=== PATIENT | male | born 1940 | race Caucasian/White ===

== ENCOUNTER 2022-04-30 06:02 | Emergency (ER) | payer MEDICARE, OTHER ==
[2022-04-30] MEDS ORDERED: Aspirin 81 MG Tab.Chew PO ONE (06:07)
[2022-04-30] MEDS ORDERED: Morphine 2 MG/ML SYRINGE IVPUSH ONE ×2 (06:14→06:48)
[2022-04-30 06:46] LABS: ANION GAP 11.3 mEq/L (7-13); CHLORIDE,CL 108 mmol/L (98-107); SODIUM,NA 144 mmol/L (136-145)
[2022-04-30 06:50] LABS: ESTIMATED GFR 52 mL/min (>=60)
[2022-04-30] MEDS ORDERED: Losartan 50 MG Tab PO ONE (09:02)
[2022-04-30] MEDS ORDERED: Hydrochlorothiazide 25 MG Tab PO ONE (09:02)
[2022-04-30] MEDS ORDERED: Atenolol 50 MG Tab PO ONE (09:02)
[2022-04-30 09:25] VITALS: BP 164/96; PULSE 64
[2022-04-30] MEDS ORDERED: methylPREDNISolone Sodium Succinate 125 MG/2 ML SDV IVPUSH ONE (11:17)
== END 2022-04-30 11:39 | disposition home or self-care (01) ==
LOC: DL.ED 06:02
DX: R09.1 Pleurisy (principal); C79.51 Secondary malignant neoplasm of bone; I10 Essential (primary) hypertension; Z79.899 Other long term (current) drug therapy; Z20.822 Contact with and (suspected) exposure to COVID-19
CPT/HCPCS: 36415; 71045; 80053; 82150; 83690; 83735; 83880; 84484; 85025; 85379; 85610; 86140; 93005; 96374; 96375; 96376; 99285; A9270; J2270; J2930; U0002

== ENCOUNTER 2022-12-01 18:51 | Emergency (ER) | payer MEDICARE, OTHER ==
[2022-12-01 19:06] VITALS: BP 121/82; PULSE 83
[2022-12-01] MEDS ORDERED: Sodium Chloride 0.9% 10 ML Syringe FLUSH PRN (19:08)
[2022-12-01] MEDS ORDERED: Acetaminophen/oxyCODONE 325-5 MG Tab PO ONE (19:15)
[2022-12-01] MEDS ORDERED: cefTRIAXone 1 GM Vial IVPUSH ONE (19:16)
[2022-12-01 19:36] LABS: BASOPHILS PERCENT AUTO 0.2 % (0.0-1.0); EOSINOPHILS PERCENT AUTO 1.1 % (1.0-3.0); HEMATOCRIT 40.2 % (40.0-54.0); HEMOGLOBIN 13.7 g/dL (14.0-18.0); LYMPHOCYTES PERCENT AUTO 13.1 % (20.5-50.1); MEAN CORPUSCULAR HEMOGLOBIN 32.6 pg (27.0-34.0); MEAN CORPUSCULAR HGB CONC 34.1 g/dL (33.0-35.0); MEAN CORPUSCULAR VOLUME 95.7 fL (80-100); MONOCYTES PERCENT AUTO 10.5 % (2-8); NEUTROPHILS PERCENT AUTO 75.1 % (42.2-75.2); PLATELET COUNT,PLT 155 10^3/uL (150-450); WHITE BLOOD CELL COUNT,WBC 9.3 10^3/uL (5.0-10.0)
[2022-12-01 19:49] LABS: ANION GAP 9.5 mEq/L (7-13); CALCIUM 8.7 mg/dL (8.5-10.1); CREATININE 1.45 mg/dL (0.70-1.30); EST CRCL DRUG DOSING (CG) 44.09 mL/min; POTASSIUM,K 3.5 mmol/L (3.5-5.1)
== END 2022-12-01 21:18 | disposition home or self-care (01) ==
LOC: DL.ED 18:51
DX: L03.115 Cellulitis of right lower limb (principal); I10 Essential (primary) hypertension; E03.9 Hypothyroidism, unspecified; Z79.899 Other long term (current) drug therapy
CPT/HCPCS: 36415; 80048; 85025; 87040; 93971; 96374; 99284; A9270; J0696; J3490

== ENCOUNTER 2022-12-07 11:26 | Inpatient (IN) | payer MEDICARE ==
[2022-12-07] MEDS ORDERED: Docusate Sodium 100 MG Cap PO PRN (12:08)
[2022-12-07] MEDS ORDERED: Ondansetron 4 MG Tab.DIS PO PRN (12:08)
[2022-12-07] MEDS ORDERED: Acetaminophen 325 MG Tab PO PRN (12:08)
[2022-12-07] MEDS ORDERED: Acetaminophen/HYDROcodone 325-5 MG Tab PO PRN (12:08)
[2022-12-07 13:13] LABS: LACTIC ACID 2.1 mmol/L (0.4-2.0)
[2022-12-07] MEDS: Sodium Chloride 0.9% 1,000 ML IV SCH (13:19)
[2022-12-07] MEDS: Calcium Carbonate/Vitamin D3 1250 MG-5 MCG Tab PO SCH ×2 (16:59→20:16)
[2022-12-07] MEDS: Sulfamethoxazole/Trimethoprim 800-160 MG Tab PO SCH (20:20)
[2022-12-08] MEDS: Sodium Chloride 0.9% 1,000 ML IV SCH (04:41)
[2022-12-08] MEDS: Levothyroxine 50 MCG Tab PO SCH (05:49)
[2022-12-08 06:34] LABS: BASOPHILS PERCENT AUTO 0.5 % (0.0-1.0); EOSINOPHILS PERCENT AUTO 2.8 % (1.0-3.0); HEMATOCRIT 37.7 % (40.0-54.0); HEMOGLOBIN 12.5 g/dL (14.0-18.0); LYMPHOCYTES PERCENT AUTO 24.3 % (20.5-50.1); MEAN CORPUSCULAR HEMOGLOBIN 32.6 pg (27.0-34.0); MEAN CORPUSCULAR HGB CONC 33.2 g/dL (33.0-35.0); MEAN CORPUSCULAR VOLUME 98.4 fL (80-100); MONOCYTES PERCENT AUTO 11.2 % (2-8); NEUTROPHILS PERCENT AUTO 61.2 % (42.2-75.2); PLATELET COUNT,PLT 211 10^3/uL (150-450); RED BLOOD CELL COUNT 3.83 10^6/uL (4.6-6.2); WHITE BLOOD CELL COUNT,WBC 6.2 10^3/uL (5.0-10.0)
[2022-12-08 07:01] LABS: ANION GAP 8.2 mEq/L (7-13); CALCIUM 8.8 mg/dL (8.5-10.1); CREATININE 1.43 mg/dL (0.70-1.30); EST CRCL DRUG DOSING (CG) 45.96 mL/min; POTASSIUM,K 4.2 mmol/L (3.5-5.1)
[2022-12-08] MEDS: Losartan 25 MG Tab PO SCH (08:46)
[2022-12-08] MEDS: Hydrochlorothiazide 25 MG Tab PO SCH (08:48)
[2022-12-08] MEDS: Atenolol 50 MG Tab PO SCH (08:49)
[2022-12-08] MEDS: Venlafaxine 150 MG Cap.ER PO SCH (08:49)
[2022-12-08] MEDS: Calcium Carbonate/Vitamin D3 1250 MG-5 MCG Tab PO SCH ×2 (08:49→20:10)
[2022-12-08] MEDS: Sulfamethoxazole/Trimethoprim 800-160 MG Tab PO SCH ×2 (08:49→20:10)
[2022-12-08] MEDS: Multivitamin Tab PO SCH (08:49)
[2022-12-08] MEDS: Enoxaparin 40 MG/0.4 ML Syringe SUBCUT SCH (08:50)
[2022-12-08] MEDS: ENZALUTAMIDE 40 MG PO SCH (09:40)
[2022-12-08] MEDS ORDERED: Sodium Chloride 0.9% 10 ML Syringe FLUSH PRN (20:07)
[2022-12-09] MEDS: Levothyroxine 50 MCG Tab PO SCH ×2 (04:38→05:23)
[2022-12-09] MEDS: Sulfamethoxazole/Trimethoprim 800-160 MG Tab PO SCH (08:32)
[2022-12-09] MEDS: Hydrochlorothiazide 25 MG Tab PO SCH (08:32)
[2022-12-09] MEDS: Losartan 25 MG Tab PO SCH (08:33)
[2022-12-09] MEDS: Atenolol 50 MG Tab PO SCH (08:33)
[2022-12-09] MEDS: Venlafaxine 150 MG Cap.ER PO SCH (08:34)
[2022-12-09] MEDS: Calcium Carbonate/Vitamin D3 1250 MG-5 MCG Tab PO SCH (08:34)
[2022-12-09] MEDS: Enoxaparin 40 MG/0.4 ML Syringe SUBCUT SCH (08:34)
[2022-12-09] MEDS: Multivitamin Tab PO SCH (08:34)
[2022-12-09] MEDS: ENZALUTAMIDE 40 MG PO SCH (08:38)
[2022-12-09 11:57] VITALS: BP 128/71; PULSE 71
[2022-12-09] MEDS ORDERED: VANCOmycin 1.5 GM/300 ML 1.5 GM in Premix Bag 1 BAG IV SCH (13:00)
== END 2022-12-09 14:00 | disposition home or self-care (01) | DRG 872 ==
LOC: DL.MS 11:26 → UNDOADMIN 11:26 → DL.MS 12:08
PROVIDERS: ADMIT Internal Medicine; ATTEND Internal Medicine
DX: A41.02 Sepsis due to Methicillin resistant Staphylococcus aureus (principal); L03.115 Cellulitis of right lower limb; E03.9 Hypothyroidism, unspecified; I10 Essential (primary) hypertension; C61 Malignant neoplasm of prostate; Z79.899 Other long term (current) drug therapy
CPT/HCPCS: 36415; 80048; 80202; 83605; 85025; A9270-GY; J1650; J3370; J7030; J7050

== ENCOUNTER 2023-12-13 18:39 | Emergency (ER) | payer OTHER ==
[2023-12-13] MEDS: Sodium Chloride 0.9% 1,000 ML IV ONE ×3 (18:45→21:16)
[2023-12-13 18:59] LABS: BASOPHILS PERCENT AUTO 0.1 % (0.0-1.0); EOSINOPHILS PERCENT AUTO 0.1 % (1.0-3.0); HEMATOCRIT 48.9 % (40.0-54.0); HEMOGLOBIN 16.6 g/dL (14.0-18.0); LYMPHOCYTES PERCENT AUTO 6.9 % (20.5-50.1); MEAN CORPUSCULAR HEMOGLOBIN 31.8 pg (27.0-34.0); MEAN CORPUSCULAR HGB CONC 33.9 g/dL (33.0-35.0); MEAN CORPUSCULAR VOLUME 93.7 fL (80-100); MONOCYTES PERCENT AUTO 5.7 % (2-8); NEUTROPHILS PERCENT AUTO 87.2 % (42.2-75.2); PLATELET COUNT,PLT 165 10^3/uL (150-450); RED BLOOD CELL COUNT 5.22 10^6/uL (4.6-6.2); WHITE BLOOD CELL COUNT,WBC 11.2 10^3/uL (5.0-10.0)
[2023-12-13] MEDS: Acetaminophen 500 MG Tab PO ONE (19:15)
[2023-12-13 19:16] LABS: INR 0.9 (0.9-1.2); PROTHROMBIN TIME 9.7 SEC (9.0-12.0); PTT,PARTIAL THROMBOPLSTIN TIME 22.8 SEC (22.0-34.0)
[2023-12-13 19:21] LABS: ALBUMIN 3.5 g/dL (3.4-5.0); ANION GAP 15.9 mEq/L (7-13); BILIRUBIN TOTAL 0.7 mg/dL (0.2-1.0); BUN/CREATININE RATIO 16.9 (No establ ref range); C-REACTIVE PROTEIN 1.88 ng/dL (<=0.50); CALCIUM 8.9 mg/dL (8.5-10.1); CREATININE 1.66 mg/dL (0.70-1.30); EST CRCL DRUG DOSING (CG) 37.83 mL/min; MAGNESIUM 1.6 mg/dL (1.8-2.4); POTASSIUM,K 3.9 mmol/L (3.5-5.1); PROTEIN TOTAL,TP 6.9 g/dL (6.4-8.2)
[2023-12-13] MEDS: Vancomycin 2 GM in Sodium Chloride 0.9% 500 ML IV ONE (20:14)
[2023-12-13] MEDS: Sodium Chloride 0.9% 10 ML Syringe FLUSH PRN (20:14)
[2023-12-13 20:29] VITALS: BP 100/55; PULSE 92
[2023-12-13] MEDS: Magnesium Sulfate/Water 2 GM in Premix Bag 1 BAG IV ONE (20:35)
[2023-12-13] MEDS: Ketorolac 30 MG/ML SDV IVPUSH ONE (20:36)
== END 2023-12-13 21:16 ==
LOC: DL.ED 18:39
DX: A41.89 Other specified sepsis (principal); U07.1 COVID-19; I44.1 Atrioventricular block, second degree; I10 Essential (primary) hypertension; E03.9 Hypothyroidism, unspecified; Z79.899 Other long term (current) drug therapy; Z79.890 Hormone replacement therapy; Z79.2 Long term (current) use of antibiotics
CPT/HCPCS: 36415; 70450; 71045; 80053; 82140; 82150; 82550; 82947; 83605; 83690; 83735; 83880; 84145; 84484; 85025; 85610; 85730; 86140; 87040; 87635; 87804; 93005; 96361; 96365; 96368; 96375; 99285; A9270; J1885; J3370; J3475; J7030; J7040; 87077; 87186; J3490; U0002

== ENCOUNTER 2024-08-28 14:13 | Inpatient (IN) | payer OTHER ==
[2024-08-28] MEDS ORDERED: Sodium Chloride 0.9% 10 ML Syringe FLUSH PRN ×2 (14:42)
[2024-08-28 15:14] LABS: BASOPHILS PERCENT AUTO 0.5 % (0.0-1.0); EOSINOPHILS PERCENT AUTO 5.3 % (1.0-3.0); HEMATOCRIT 38.8 % (40.0-54.0); HEMOGLOBIN 12.7 g/dL (14.0-18.0); LYMPHOCYTES PERCENT AUTO 18.3 % (20.5-50.1); MEAN CORPUSCULAR HEMOGLOBIN 30.8 pg (27.0-34.0); MEAN CORPUSCULAR HGB CONC 32.7 g/dL (33.0-35.0); MEAN CORPUSCULAR VOLUME 94.2 fL (80-100); NEUTROPHILS PERCENT AUTO 64.9 % (42.2-75.2); PLATELET COUNT,PLT 167 10^3/uL (150-450); RED BLOOD CELL COUNT 4.12 10^6/uL (4.6-6.2); WHITE BLOOD CELL COUNT,WBC 5.6 10^3/uL (5.0-10.0)
[2024-08-28 15:36] LABS: ANION GAP 8.6 mEq/L (7-13); BILIRUBIN TOTAL 0.7 mg/dL (0.2-1.0); BUN/CREATININE RATIO 16.2 (No establ ref range); CALCIUM 8.8 mg/dL (8.5-10.1); CREATININE 1.42 mg/dL (0.70-1.30); EST CRCL DRUG DOSING (CG) 43.42 mL/min; POTASSIUM,K 3.6 mmol/L (3.5-5.1); PROTEIN TOTAL,TP 5.8 g/dL (6.4-8.2)
[2024-08-28 15:43] LABS: A/G RATIO 1.07
[2024-08-28 15:44] LABS: PROTHROMBIN TIME 10.5 SEC (9.0-12.0)
[2024-08-28 15:46] LABS: D-DIMER QUANTITATIVE > 5000 ng/mL (0-400)
[2024-08-28] MEDS: Iopamidol 612 MG/ML 100 ML Bottle IVPUSH ONE (15:52)
[2024-08-28] MEDS: Iopamidol 755 Mg/ML 100 ML Bottle IVPUSH ONE (16:27)
[2024-08-28] MEDS: Heparin Sodium 5,000 Units/ML Vial IVPUSH ONE (17:23)
[2024-08-28] MEDS: Heparin Sodium/0.45% NaCl 25,000 UNITS/500 ML BAG IV SCH (17:25)
[2024-08-28] MEDS ORDERED: Ondansetron 4 MG/2 ML SDV IVPUSH PRN (18:19)
[2024-08-28] MEDS ORDERED: Polyethylene Glycol 3350 Powder 17 GM Packet PO PRN (18:19)
[2024-08-28] MEDS ORDERED: Sennosides/Docusate Sodium 50-8.6 MG Tab PO PRN (18:19)
[2024-08-28] MEDS ORDERED: Magnesium Hydroxide 400 MG/5 ML Susp 30 ML Cup PO PRN (18:19)
[2024-08-28] MEDS ORDERED: Melatonin 3 MG Tab PO PRN (18:19)
[2024-08-28] MEDS ORDERED: Acetaminophen/HYDROcodone 325-5 MG Tab PO PRN (18:19)
[2024-08-28] MEDS ORDERED: Acetaminophen 325 MG Tab PO PRN (18:19)
[2024-08-28] MEDS ORDERED: Naloxone 2 MG/2 ML Syringe IVPUSH PRN (18:19)
[2024-08-28] MEDS ORDERED: HYDROmorphone 0.5 MG/0.5 ML Syringe IVPUSH PRN (18:19)
[2024-08-28] MEDS ORDERED: Benzonatate 100 MG Cap PO PRN (19:19)
[2024-08-28] MEDS ORDERED: 50% Dextrose in Water 50 ML Syringe IVPUSH PRN (19:30)
[2024-08-28] MEDS ORDERED: Glucagon,Human Recombinant 1 MG Vial IM PRN (19:30)
[2024-08-28 19:55] LABS: T4 FREE 1.3 ng/dL (0.76-1.46); TSH ULTRASENSITIVE 2.17 uIU/mL (0.36-3.74)
[2024-08-28] MEDS: Dexamethasone 4 MG/ML SDV IVPUSH ONE (20:01)
[2024-08-28] MEDS: Benzonatate 100 MG Cap PO ONE (20:01)
[2024-08-28] MEDS: Multivitamin Tab PO SCH (22:01)
[2024-08-28] MEDS: Saccharomyces Boulardii (Probiotic) 250 MG Cap PO SCH (22:02)
[2024-08-28] MEDS: guaiFENesin 600 MG Tab.ER PO SCH (22:02)
[2024-08-28] MEDS: Codeine/guaiFENesin 10-100 MG/5 ML Syrup 5 ML Cup PO PRN (22:02)
[2024-08-28] MEDS: Amoxicillin/Clavulanate K 875-125 MG Tab PO SCH (22:02)
[2024-08-28] MEDS: Metoprolol Tartrate 5 MG/5 ML SDV IVPUSH PRN (22:09)
[2024-08-28] MEDS: Sodium Chloride 0.9% 1,000 ML IV SCH (22:10)
[2024-08-29] MEDS: Levothyroxine 100 MCG Tab PO SCH (05:44)
[2024-08-29] MEDS: Levothyroxine 75 MCG Tab PO SCH (05:44)
[2024-08-29 06:23] LABS: BASOPHILS PERCENT AUTO 0.2 % (0.0-1.0); HEMATOCRIT 41.1 % (40.0-54.0); HEMOGLOBIN 13.1 g/dL (14.0-18.0); LYMPHOCYTES PERCENT AUTO 17.8 % (20.5-50.1); MEAN CORPUSCULAR HEMOGLOBIN 30.5 pg (27.0-34.0); MEAN CORPUSCULAR HGB CONC 31.9 g/dL (33.0-35.0); MEAN CORPUSCULAR VOLUME 95.8 fL (80-100); MONOCYTES PERCENT AUTO 3.7 % (2-8); NEUTROPHILS PERCENT AUTO 78.3 % (42.2-75.2); PLATELET COUNT,PLT 175 10^3/uL (150-450); RED BLOOD CELL COUNT 4.29 10^6/uL (4.6-6.2); WHITE BLOOD CELL COUNT,WBC 4.4 10^3/uL (5.0-10.0)
[2024-08-29 06:59] LABS: ANION GAP 15.4 mEq/L (7-13); BILIRUBIN TOTAL 0.6 mg/dL (0.2-1.0); BUN/CREATININE RATIO 18.4 (No establ ref range); CALCIUM 8.8 mg/dL (8.5-10.1); CREATININE 1.41 mg/dL (0.70-1.30); EST CRCL DRUG DOSING (CG) 43.72 mL/min; MAGNESIUM 2.4 mg/dL (1.8-2.4); POTASSIUM,K 4.4 mmol/L (3.5-5.1); PROTEIN TOTAL,TP 6.1 g/dL (6.4-8.2)
[2024-08-29 07:04] LABS: A/G RATIO 0.97
[2024-08-29] MEDS: Heparin Sodium 5,000 Units/ML Vial IVPUSH ONE ×2 (07:28→20:55)
[2024-08-29] MEDS: Insulin Lispro 100 Units/ML 3 ML Vial SUBCUT SCH (08:20)
[2024-08-29] MEDS: Dexamethasone 2 MG Tab PO SCH (08:24)
[2024-08-29] MEDS: Atenolol 50 MG Tab PO SCH (08:27)
[2024-08-29] MEDS ORDERED: Levothyroxine 100 MCG Tab PO SCH (09:00)
[2024-08-29] MEDS ORDERED: Levothyroxine 75 MCG Tab PO SCH (09:00)
[2024-08-29] MEDS: Albuterol/Ipratropium 3.0-0.5 MG/3 ML Neb Soln NEB PRN (13:26)
[2024-08-29] MEDS: Benzonatate 100 MG Cap PO PRN (20:12)
[2024-08-29] MEDS: Digoxin 500 MCG/2 ML Amp IVPUSH ONE (20:55)
[2024-08-29] MEDS ORDERED: Flumazenil 0.1 MG/ML 5 ML MDV IVPUSH PRN (22:32)
[2024-08-30 02:15] LABS: BASOPHILS PERCENT AUTO 0.1 % (0.0-1.0); EOSINOPHILS PERCENT AUTO 0.1 % (1.0-3.0); HEMATOCRIT 39.4 % (40.0-54.0); HEMOGLOBIN 12.4 g/dL (14.0-18.0); LYMPHOCYTES PERCENT AUTO 12.6 % (20.5-50.1); MEAN CORPUSCULAR HEMOGLOBIN 30.3 pg (27.0-34.0); MEAN CORPUSCULAR HGB CONC 31.5 g/dL (33.0-35.0); MEAN CORPUSCULAR VOLUME 96.3 fL (80-100); MONOCYTES PERCENT AUTO 6.3 % (2-8); NEUTROPHILS PERCENT AUTO 80.9 % (42.2-75.2); PLATELET COUNT,PLT 163 10^3/uL (150-450); RED BLOOD CELL COUNT 4.09 10^6/uL (4.6-6.2)
[2024-08-30] MEDS: LORazepam 2 MG/ML SDV IVPUSH ONE (02:20)
[2024-08-30] MEDS: Codeine/guaiFENesin 10-100 MG/5 ML Syrup 5 ML Cup PO PRN (02:22)
[2024-08-30] MEDS: Benzonatate 100 MG Cap PO PRN (02:22)
[2024-08-30 02:37] LABS: ALBUMIN 2.5 g/dL (3.4-5.0); ANION GAP 13.5 mEq/L (7-13); BILIRUBIN TOTAL 0.4 mg/dL (0.2-1.0); C-REACTIVE PROTEIN 1.28 ng/dL (<=0.50); POTASSIUM,K 4.5 mmol/L (3.5-5.1); PROTEIN TOTAL,TP 5.7 g/dL (6.4-8.2)
[2024-08-30 02:44] LABS: BUN/CREATININE RATIO 25.2 (No establ ref range); CALCIUM 8.4 mg/dL (8.5-10.1); CREATININE 1.23 mg/dL (0.70-1.30); EST CRCL DRUG DOSING (CG) 50.12 mL/min; MAGNESIUM 2.3 mg/dL (1.8-2.4)
[2024-08-30 02:46] LABS: A/G RATIO 0.78
[2024-08-30] MEDS: Hydrochlorothiazide 25 MG Tab PO SCH (08:22)
[2024-08-30] MEDS: Losartan 25 MG Tab PO SCH (08:24)
[2024-08-30] MEDS: Gabapentin 100 MG Cap PO SCH (08:25)
[2024-08-30] MEDS ORDERED: LORazepam 1 MG Tab PO PRN (11:29)
[2024-08-30] MEDS: cloNIDine 0.1 MG Tab PO ONE (12:28)
[2024-08-30] MEDS: Digoxin 500 MCG/2 ML Amp IVPUSH ONE (18:37)
[2024-08-30] MEDS: Diltiazem 125 MG in Sodium Chloride 0.9% 100 ML IV SCH (20:45)
[2024-08-30] MEDS ORDERED: cloNIDine 0.1 MG Tab PO SCH (21:00)
[2024-08-30] MEDS: Midodrine 5 MG Tab PO ONE (21:03)
[2024-08-31] MEDS: hydrALAZINE 20 MG/ML SDV IVPUSH PRN (00:33)
[2024-08-31 08:34] LABS: HEMATOCRIT 41.8 % (40.0-54.0); HEMOGLOBIN 13.3 g/dL (14.0-18.0); MEAN CORPUSCULAR HEMOGLOBIN 30.4 pg (27.0-34.0); MEAN CORPUSCULAR HGB CONC 31.8 g/dL (33.0-35.0); MEAN CORPUSCULAR VOLUME 95.4 fL (80-100); PLATELET COUNT,PLT 235 10^3/uL (150-450); RED BLOOD CELL COUNT 4.38 10^6/uL (4.6-6.2)
[2024-08-31 08:35] LABS: BASOPHILS PERCENT AUTO 0.1 % (0.0-1.0); LYMPHOCYTES PERCENT AUTO 9.8 % (20.5-50.1); MONOCYTES PERCENT AUTO 5.1 % (2-8)
[2024-08-31 08:53] LABS: ALBUMIN 3.2 g/dL (3.4-5.0); ANION GAP 14.2 mEq/L (7-13); BILIRUBIN TOTAL 0.5 mg/dL (0.2-1.0); C-REACTIVE PROTEIN 0.64 ng/dL (<=0.50); CALCIUM 8.7 mg/dL (8.5-10.1); CREATININE 1.27 mg/dL (0.70-1.30); EST CRCL DRUG DOSING (CG) 48.54 mL/min; MAGNESIUM 2.3 mg/dL (1.8-2.4); POTASSIUM,K 4.2 mmol/L (3.5-5.1); PROTEIN TOTAL,TP 6.4 g/dL (6.4-8.2)
[2024-08-31 09:03] LABS: BAND PERCENT MAN 1 %; LYMPHOCYTES PERCENT MAN 8 % (20-50); MONOCYTES PERCENT MAN 4 % (2-8); SEG NEUTROPHILS PERCENT MAN 87 % (42-75)
[2024-08-31] MEDS: Digoxin 500 MCG/2 ML Amp IVPUSH SCH (09:36)
[2024-08-31] MEDS: Losartan 50 MG Tab PO SCH (10:08)
[2024-08-31] MEDS: Atenolol 25 MG Tab PO ONE (15:45)
[2024-08-31] MEDS: Apixaban 5 MG Tab PO SCH (22:04)
[2024-09-01 07:04] LABS: BASOPHILS PERCENT AUTO 0.1 % (0.0-1.0); HEMATOCRIT 38.7 % (40.0-54.0); HEMOGLOBIN 12.3 g/dL (14.0-18.0); LYMPHOCYTES PERCENT AUTO 10.4 % (20.5-50.1); MEAN CORPUSCULAR HEMOGLOBIN 30.7 pg (27.0-34.0); MEAN CORPUSCULAR HGB CONC 31.8 g/dL (33.0-35.0); MEAN CORPUSCULAR VOLUME 96.5 fL (80-100); MONOCYTES PERCENT AUTO 7.2 % (2-8); NEUTROPHILS PERCENT AUTO 82.3 % (42.2-75.2); PLATELET COUNT,PLT 218 10^3/uL (150-450); RED BLOOD CELL COUNT 4.01 10^6/uL (4.6-6.2); WHITE BLOOD CELL COUNT,WBC 7.4 10^3/uL (5.0-10.0)
[2024-09-01 07:24] LABS: ALANINE AMINOTRANSFERASE,ALT 48 U/L (16-63); ALBUMIN 3.1 g/dL (3.4-5.0); ALKALINE PHOSPHATASE 59 U/L (46-116); ANION GAP 13.7 mEq/L (7-13); ASPARTATE AMNIOTRANSFERASE,AST 25 U/L (15-37); BILIRUBIN TOTAL 0.5 mg/dL (0.2-1.0); BLOOD UREA NITROGEN,BUN 33 mg/dL (7-18); BUN/CREATININE RATIO 20.1 (No establ ref range); CALCIUM 9.1 mg/dL (8.5-10.1); CARBON DIOXIDE,CO2 26 mmol/L (21-32); CHLORIDE,CL 106 mmol/L (98-107); CREATININE 1.64 mg/dL (0.70-1.30); EST CRCL DRUG DOSING (CG) 37.59 mL/min; GLUCOSE RANDOM 231 mg/dL (70-99); MAGNESIUM 2.2 mg/dL (1.8-2.4); POTASSIUM,K 4.7 mmol/L (3.5-5.1); PROTEIN TOTAL,TP 5.8 g/dL (6.4-8.2); SODIUM,NA 141 mmol/L (136-145)
[2024-09-01 07:29] LABS: A/G RATIO 1.15; C-REACTIVE PROTEIN < 0.50 ng/dL (<=0.50); ESTIMATED GFR 40 mL/min (>=60)
[2024-09-01 16:27] VITALS: BP 155/87; PULSE 81
== END 2024-09-01 17:00 | disposition home or self-care (01) | DRG 175 ==
LOC: DL.ED 14:13 → DL.MS 17:27
PROVIDERS: ADMIT Internal Medicine; ATTEND Internal Medicine
DX: I26.99 Other pulmonary embolism without acute cor pulmonale (principal); I50.21 Acute systolic (congestive) heart failure; J96.01 Acute respiratory failure with hypoxia; I42.9 Cardiomyopathy, unspecified; I13.0 Hypertensive heart and chronic kidney disease with heart failure and stage 1 through stage 4 chronic kidney disease, or unspecified chronic kidney disease; Z66 Do not resuscitate; E78.00 Pure hypercholesterolemia, unspecified; Z68.31 Body mass index [BMI] 31.0-31.9, adult; N42.9 Disorder of prostate, unspecified; I48.91 Unspecified atrial fibrillation; I10 Essential (primary) hypertension; N18.30 Chronic kidney disease, stage 3 unspecified; D63.1 Anemia in chronic kidney disease; M19.90 Unspecified osteoarthritis, unspecified site; E88.09 Other disorders of plasma-protein metabolism, not elsewhere classified; E66.811 Obesity, class 1; E11.65 Type 2 diabetes mellitus with hyperglycemia; E11.22 Type 2 diabetes mellitus with diabetic chronic kidney disease; F39 Unspecified mood [affective] disorder; E03.9 Hypothyroidism, unspecified; Z96.659 Presence of unspecified artificial knee joint; Z85.46 Personal history of malignant neoplasm of prostate; Z85.830 Personal history of malignant neoplasm of bone; Z89.201 Acquired absence of right upper limb, unspecified level; Z79.890 Hormone replacement therapy; Z79.899 Other long term (current) drug therapy
CPT/HCPCS: 36415; 71275; 80053; 82306; 83605; 83880; 84439; 84443; 84484; 85025; 85379; 85610; 86140; 93005; 93010; 96374; 99285; 99291; J1644 ×2; Q9967; 82947; 83735; 85730; 87428-QW; 93306; 93970; 94010; 94640; 99223; 99232; 99233; 99238; A9270-GY; J0360; J1100; J1160; J1815-GY; J3490; J7030; J7620-GY; J8540

== ENCOUNTER 2024-09-24 15:11 | Emergency (ER) | payer OTHER ==
[2024-09-24 16:04] LABS: BASOPHILS PERCENT AUTO 0.2 % (0.0-1.0); EOSINOPHILS PERCENT AUTO 1.4 % (1.0-3.0); HEMOGLOBIN 14.7 g/dL (14.0-18.0); LYMPHOCYTES PERCENT AUTO 9.8 % (20.5-50.1); MEAN CORPUSCULAR HEMOGLOBIN 30.8 pg (27.0-34.0); MEAN CORPUSCULAR HGB CONC 32.7 g/dL (33.0-35.0); MEAN CORPUSCULAR VOLUME 94.1 fL (80-100); MONOCYTES PERCENT AUTO 7.8 % (2-8); NEUTROPHILS PERCENT AUTO 80.8 % (42.2-75.2); PLATELET COUNT,PLT 154 10^3/uL (150-450); RED BLOOD CELL COUNT 4.78 10^6/uL (4.6-6.2); WHITE BLOOD CELL COUNT,WBC 8.5 10^3/uL (5.0-10.0)
[2024-09-24] MEDS: Albuterol/Ipratropium 3.0-0.5 MG/3 ML Neb Soln NEB ONE (16:19)
[2024-09-24 16:24] LABS: A/G RATIO 1.4; ALBUMIN 3.7 g/dL (3.4-5.0); ANION GAP 12.9 mEq/L (7-13); BILIRUBIN TOTAL 1.1 mg/dL (0.2-1.0); CALCIUM 9.4 mg/dL (8.5-10.1); CREATININE 1.54 mg/dL (0.70-1.30); EST CRCL DRUG DOSING (CG) 37.79 mL/min; MAGNESIUM 1.9 mg/dL (1.8-2.4); POTASSIUM,K 3.9 mmol/L (3.5-5.1); PROTEIN TOTAL,TP 6.4 g/dL (6.4-8.2)
[2024-09-24] MEDS: Albuterol 6.7 GM Inhaler INH ONE (17:23)
[2024-09-24 17:29] VITALS: BP 105/74; PULSE 94
== END 2024-09-24 17:46 | disposition home or self-care (01) ==
LOC: DL.ED 15:11
DX: J45.20 Mild intermittent asthma, uncomplicated (principal); I95.2 Hypotension due to drugs; I13.0 Hypertensive heart and chronic kidney disease with heart failure and stage 1 through stage 4 chronic kidney disease, or unspecified chronic kidney disease; I50.9 Heart failure, unspecified; I48.91 Unspecified atrial fibrillation; E11.22 Type 2 diabetes mellitus with diabetic chronic kidney disease; E03.9 Hypothyroidism, unspecified; N18.9 Chronic kidney disease, unspecified; Z79.899 Other long term (current) drug therapy; Z79.890 Hormone replacement therapy
CPT/HCPCS: 71046; 80053; 83735; 83880; 84484; 85025; 87428; 93005; 93010; 99284; 99285; A9270; J7620

== ENCOUNTER 2024-10-31 07:54 | Inpatient (IN) | payer OTHER ==
[2024-10-31 08:58] LABS: BASOPHILS PERCENT AUTO 0.3 % (0.0-1.0); EOSINOPHILS PERCENT AUTO 1.9 % (1.0-3.0); HEMATOCRIT 44.8 % (40.0-54.0); HEMOGLOBIN 14.6 g/dL (14.0-18.0); LYMPHOCYTES PERCENT AUTO 10.8 % (20.5-50.1); MEAN CORPUSCULAR HEMOGLOBIN 31.8 pg (27.0-34.0); MEAN CORPUSCULAR HGB CONC 32.6 g/dL (33.0-35.0); MEAN CORPUSCULAR VOLUME 97.6 fL (80-100); MONOCYTES PERCENT AUTO 8.4 % (2-8); NEUTROPHILS PERCENT AUTO 78.6 % (42.2-75.2); PLATELET COUNT,PLT 129 10^3/uL (150-450); RED BLOOD CELL COUNT 4.59 10^6/uL (4.6-6.2); WHITE BLOOD CELL COUNT,WBC 6.8 10^3/uL (5.0-10.0)
[2024-10-31] MEDS: Albuterol/Ipratropium 3.0-0.5 MG/3 ML Neb Soln ONE (09:14)
[2024-10-31] MEDS: methylPREDNISolone Sodium Succinate 125 MG/2 ML SDV IVPUSH ONE (09:14)
[2024-10-31] MEDS: Albuterol/Ipratropium 3.0-0.5 MG/3 ML Neb Soln NEB ONE (09:14)
[2024-10-31 09:19] LABS: B-TYPE NATRIURETIC PEPTIDE,BNP 320 pg/ml (0-100); INR 1.1 (0.9-1.2); PROTHROMBIN TIME 11.5 SEC (9.0-12.0); PTT,PARTIAL THROMBOPLSTIN TIME 23.6 SEC (22.0-34.0)
[2024-10-31 09:22] LABS: A/G RATIO 1.4; ALANINE AMINOTRANSFERASE,ALT 49 U/L (16-63); ALBUMIN 3.5 g/dL (3.4-5.0); ALKALINE PHOSPHATASE 59 U/L (46-116); ANION GAP 13.7 mEq/L (7-13); ASPARTATE AMNIOTRANSFERASE,AST 34 U/L (15-37); BILIRUBIN TOTAL 1.2 mg/dL (0.2-1.0); BLOOD UREA NITROGEN,BUN 18 mg/dL (7-18); BUN/CREATININE RATIO 13.5 (No establ ref range); C-REACTIVE PROTEIN < 0.50 ng/dL (<=0.50); CALCIUM 9.1 mg/dL (8.5-10.1); CARBON DIOXIDE,CO2 27 mmol/L (21-32); CHLORIDE,CL 110 mmol/L (98-107); CREATININE 1.33 mg/dL (0.70-1.30); EST CRCL DRUG DOSING (CG) 46.35 mL/min; ESTIMATED GFR 52 mL/min (>=60); GLUCOSE RANDOM 149 mg/dL (70-99); POTASSIUM,K 4.7 mmol/L (3.5-5.1); SODIUM,NA 146 mmol/L (136-145)
[2024-10-31 09:25] LABS: LACTIC ACID 1.6 mmol/L (0.4-2.0)
[2024-10-31] MEDS: Lactated Ringers 1,000 ML IV ONE (09:50)
[2024-10-31] MEDS: cefTRIAXone 1 GM Vial IVPUSH ONE (10:25)
[2024-10-31] MEDS: Azithromycin 500 MG in Sodium Chloride 0.9% 250 ML IV ONE (10:27)
[2024-10-31] MEDS: Sodium Chloride 0.9% 10 ML Syringe FLUSH PRN (10:36)
[2024-10-31] MEDS ORDERED: hydrALAZINE 20 MG/ML SDV IVPUSH PRN (11:43)
[2024-10-31] MEDS ORDERED: Metoprolol Tartrate 5 MG/5 ML SDV IVPUSH PRN (11:43)
[2024-10-31] MEDS ORDERED: Ondansetron 4 MG/2 ML SDV IVPUSH PRN (11:48)
[2024-10-31] MEDS ORDERED: Naloxone 2 MG/2 ML Syringe IVPUSH PRN (11:48)
[2024-10-31] MEDS ORDERED: Sennosides/Docusate Sodium 50-8.6 MG Tab PO PRN (11:48)
[2024-10-31] MEDS ORDERED: Melatonin 3 MG Tab PO PRN (11:48)
[2024-10-31] MEDS ORDERED: Polyethylene Glycol 3350 Powder 17 GM Packet PO PRN (11:48)
[2024-10-31] MEDS ORDERED: HYDROmorphone 0.5 MG/0.5 ML Syringe IVPUSH PRN (11:48)
[2024-10-31] MEDS ORDERED: Magnesium Hydroxide 400 MG/5 ML Susp 30 ML Cup PO PRN (11:48)
[2024-10-31] MEDS: Furosemide 100 MG in Sodium Chloride 0.9% 90 ML IV SCH (12:33)
[2024-10-31] MEDS: Albumin Human 25 GM in Premix Bag 1 BAG IV SCH (12:44)
[2024-10-31] MEDS: Ipratropium 0.02% 0.5 MG/2.5 ML Neb Soln INH SCH (13:45)
[2024-10-31] MEDS: Albuterol 6.7 GM Inhaler INH SCH (13:53)
[2024-10-31] MEDS: Acetaminophen 325 MG Tab PO PRN (15:44)
[2024-10-31 16:20] LABS: CORONAVIRUS COVID-19 NAA NEGATIVE (NEGATIVE); INFLUENZA A NAA NEGATIVE (NEGATIVE); INFLUENZA B NAA NEGATIVE (NEGATIVE)
[2024-10-31] MEDS: Apixaban 5 MG Tab PO SCH (20:50)
[2024-10-31] MEDS: Calcium Carbonate/Vitamin D3 1250 MG-5 MCG Tab PO SCH (20:50)
[2024-10-31] MEDS: Metoprolol Succinate 50 MG Tab.ER PO SCH (20:50)
[2024-10-31] MEDS: Multivitamins with Iron/Calcium/Folic Acid/Minerals Tab PO SCH (20:50)
[2024-11-01] MEDS: Levothyroxine 100 MCG Tab PO SCH (05:35)
[2024-11-01 06:41] LABS: BASOPHILS PERCENT AUTO 0.1 % (0.0-1.0); HEMATOCRIT 40.8 % (40.0-54.0); HEMOGLOBIN 12.4 g/dL (14.0-18.0); LYMPHOCYTES PERCENT AUTO 9.1 % (20.5-50.1); MEAN CORPUSCULAR HEMOGLOBIN 30.3 pg (27.0-34.0); MEAN CORPUSCULAR HGB CONC 30.4 g/dL (33.0-35.0); MEAN CORPUSCULAR VOLUME 99.8 fL (80-100); MONOCYTES PERCENT AUTO 10.9 % (2-8); NEUTROPHILS PERCENT AUTO 79.9 % (42.2-75.2); PLATELET COUNT,PLT 136 10^3/uL (150-450); RED BLOOD CELL COUNT 4.09 10^6/uL (4.6-6.2); WHITE BLOOD CELL COUNT,WBC 8.3 10^3/uL (5.0-10.0)
[2024-11-01 07:04] LABS: A/G RATIO 1.8; ALANINE AMINOTRANSFERASE,ALT 41 U/L (16-63); ALBUMIN 4.2 g/dL (3.4-5.0); ALKALINE PHOSPHATASE 48 U/L (46-116); ANION GAP 15.2 mEq/L (7-13); ASPARTATE AMNIOTRANSFERASE,AST 18 U/L (15-37); BILIRUBIN TOTAL 0.6 mg/dL (0.2-1.0); BLOOD UREA NITROGEN,BUN 27 mg/dL (7-18); BUN/CREATININE RATIO 16.8 (No establ ref range); C-REACTIVE PROTEIN < 0.50 ng/dL (<=0.50); CALCIUM 9.9 mg/dL (8.5-10.1); CARBON DIOXIDE,CO2 29 mmol/L (21-32); CHLORIDE,CL 110 mmol/L (98-107); CREATININE 1.61 mg/dL (0.70-1.30); EST CRCL DRUG DOSING (CG) 38.29 mL/min; ESTIMATED GFR 41 mL/min (>=60); GLUCOSE RANDOM 153 mg/dL (70-99); MAGNESIUM 2.4 mg/dL (1.8-2.4); POTASSIUM,K 4.2 mmol/L (3.5-5.1); PROTEIN TOTAL,TP 6.5 g/dL (6.4-8.2); SODIUM,NA 150 mmol/L (136-145)
[2024-11-01] MEDS ORDERED: Empagliflozin 25 MG Tab PO SCH (09:00)
[2024-11-01] MEDS: traZODone 50 MG Tab PO SCH (09:49)
[2024-11-01] MEDS: Vitamin B6-pyridOXINE 100 MG Tab PO SCH (09:50)
[2024-11-01] MEDS: predniSONE 20 MG Tab PO ONE (09:54)
[2024-11-01] MEDS: Escitalopram 10 MG Tab PO SCH (10:01)
[2024-11-01] MEDS: Dextrose 5% in Water 1,000 ML IV SCH (10:02)
[2024-11-01] MEDS: Albuterol 6.7 GM Inhaler INH SCH (13:09)
[2024-11-01] MEDS: guaiFENesin 600 MG Tab.ER PO SCH (14:19)
[2024-11-01] MEDS ORDERED: Non-Formulary Medication 1 Each INH SCH (18:15)
[2024-11-01 21:59] LABS: ANION GAP 15.7 mEq/L (7-13); CALCIUM 9.3 mg/dL (8.5-10.1); CREATININE 1.72 mg/dL (0.70-1.30); EST CRCL DRUG DOSING (CG) 35.84 mL/min; POTASSIUM,K 4.7 mmol/L (3.5-5.1)
[2024-11-02] MEDS: Benzonatate 100 MG Cap PO PRN (05:44)
[2024-11-02 06:20] LABS: BASOPHILS PERCENT AUTO 0.2 % (0.0-1.0); EOSINOPHILS PERCENT AUTO 0.4 % (1.0-3.0); HEMATOCRIT 40.9 % (40.0-54.0); HEMOGLOBIN 12.7 g/dL (14.0-18.0); LYMPHOCYTES PERCENT AUTO 10.4 % (20.5-50.1); MEAN CORPUSCULAR HEMOGLOBIN 31.5 pg (27.0-34.0); MEAN CORPUSCULAR HGB CONC 31.1 g/dL (33.0-35.0); MEAN CORPUSCULAR VOLUME 101.5 fL (80-100); MONOCYTES PERCENT AUTO 9.7 % (2-8); NEUTROPHILS PERCENT AUTO 79.3 % (42.2-75.2); PLATELET COUNT,PLT 141 10^3/uL (150-450); RED BLOOD CELL COUNT 4.03 10^6/uL (4.6-6.2); WHITE BLOOD CELL COUNT,WBC 9.8 10^3/uL (5.0-10.0)
[2024-11-02 06:46] LABS: A/G RATIO 2.1; ALANINE AMINOTRANSFERASE,ALT 48 U/L (16-63); ALBUMIN 4.4 g/dL (3.4-5.0); ALKALINE PHOSPHATASE 43 U/L (46-116); ANION GAP 9.2 mEq/L (7-13); ASPARTATE AMNIOTRANSFERASE,AST 29 U/L (15-37); BILIRUBIN TOTAL 0.6 mg/dL (0.2-1.0); BLOOD UREA NITROGEN,BUN 34 mg/dL (7-18); BUN/CREATININE RATIO 21.5 (No establ ref range); CALCIUM 9.7 mg/dL (8.5-10.1); CARBON DIOXIDE,CO2 34 mmol/L (21-32); CHLORIDE,CL 108 mmol/L (98-107); CREATININE 1.58 mg/dL (0.70-1.30); EST CRCL DRUG DOSING (CG) 39.02 mL/min; GLUCOSE RANDOM 135 mg/dL (70-99); MAGNESIUM 2.2 mg/dL (1.8-2.4); POTASSIUM,K 4.2 mmol/L (3.5-5.1); PROTEIN TOTAL,TP 6.5 g/dL (6.4-8.2); SODIUM,NA 147 mmol/L (136-145)
[2024-11-02 06:47] LABS: C-REACTIVE PROTEIN < 0.50 ng/dL (<=0.50); ESTIMATED GFR 42 mL/min (>=60)
[2024-11-02] MEDS: predniSONE 20 MG Tab PO SCH (08:46)
[2024-11-02 11:49] LABS: GAMMA GLUTAMYL TRANSFERASE,GGT 13 U/L (15-85); T4 FREE 0.79 ng/dL (0.76-1.46); TSH ULTRASENSITIVE 4.57 uIU/mL (0.36-3.74)
[2024-11-02 11:52] LABS: FOLIC ACID > 20.0 ng/mL (8.6-58.9)
[2024-11-02 11:56] LABS: CORONAVIRUS COVID-19 NAA NEGATIVE (NEGATIVE); INFLUENZA A NAA NEGATIVE (NEGATIVE); INFLUENZA B NAA NEGATIVE (NEGATIVE)
[2024-11-02] MEDS: Furosemide 40 MG/4 ML VIAL IVPUSH ONE (13:02)
[2024-11-02] MEDS: Potassium Chloride 20 MEQ in Premix Bag 1 BAG IV ONE ×2 (17:46→20:00)
[2024-11-02] MEDS: Potassium Chloride 20 MEQ in Premix Bag 2 BAG IV ONE (18:13)
[2024-11-02] MEDS: Furosemide 100 MG in Sodium Chloride 0.9% 90 ML IV SCH (18:27)
[2024-11-02] MEDS: traZODone 50 MG Tab PO SCH (20:05)
[2024-11-03 06:45] LABS: BASOPHILS PERCENT AUTO 0.2 % (0.0-1.0); EOSINOPHILS PERCENT AUTO 0.4 % (1.0-3.0); HEMATOCRIT 46.3 % (40.0-54.0); HEMOGLOBIN 14.4 g/dL (14.0-18.0); MEAN CORPUSCULAR HEMOGLOBIN 31.2 pg (27.0-34.0); MEAN CORPUSCULAR HGB CONC 31.1 g/dL (33.0-35.0); MEAN CORPUSCULAR VOLUME 100.2 fL (80-100); MONOCYTES PERCENT AUTO 9.6 % (2-8); NEUTROPHILS PERCENT AUTO 79.8 % (42.2-75.2); PLATELET COUNT,PLT 139 10^3/uL (150-450); RED BLOOD CELL COUNT 4.62 10^6/uL (4.6-6.2); WHITE BLOOD CELL COUNT,WBC 10.2 10^3/uL (5.0-10.0)
[2024-11-03 06:54] LABS: ANION GAP 9.6 mEq/L (7-13); CREATININE 1.66 mg/dL (0.70-1.30); EST CRCL DRUG DOSING (CG) 37.14 mL/min; MAGNESIUM 2.2 mg/dL (1.8-2.4); POTASSIUM,K 3.6 mmol/L (3.5-5.1)
[2024-11-03] MEDS: acetaZOLAMIDE 500 MG Vial IVPUSH ONE (07:57)
[2024-11-03] MEDS: Escitalopram 10 MG Tab PO SCH (08:08)
[2024-11-03] MEDS: Codeine/guaiFENesin 10-100 MG/5 ML Syrup 5 ML Cup PO SCH (09:37)
[2024-11-03] MEDS: Acetaminophen 500 MG Tab PO ONE (09:37)
[2024-11-03] MEDS: Lactulose Soln 10 GM/15 ML 30 ML UD Cup PO SCH (09:37)
[2024-11-03 11:47] VITALS: BP 124/77; PULSE 106
[2024-11-05 12:43] LABS: MYCOPLASMA IGM 0.2 U/L (<=0.76)
== END 2024-11-03 12:30 | DRG 193 ==
LOC: DL.ED 07:54 → DL.MS 10:25 → UNDOADMIN 10:25
PROVIDERS: ADMIT Internal Medicine; ATTEND Internal Medicine
DX: J18.9 Pneumonia, unspecified organism (principal); I11.0 Hypertensive heart disease with heart failure; I50.9 Heart failure, unspecified; I50.43 Acute on chronic combined systolic (congestive) and diastolic (congestive) heart failure; I13.0 Hypertensive heart and chronic kidney disease with heart failure and stage 1 through stage 4 chronic kidney disease, or unspecified chronic kidney disease; Z79.890 Hormone replacement therapy; I42.9 Cardiomyopathy, unspecified; E87.0 Hyperosmolality and hypernatremia; E78.00 Pure hypercholesterolemia, unspecified; E03.9 Hypothyroidism, unspecified; Z96.659 Presence of unspecified artificial knee joint; I48.91 Unspecified atrial fibrillation; N18.30 Chronic kidney disease, stage 3 unspecified; M19.90 Unspecified osteoarthritis, unspecified site; Z66 Do not resuscitate; D75.839 Thrombocytosis, unspecified; E87.8 Other disorders of electrolyte and fluid balance, not elsewhere classified; E11.65 Type 2 diabetes mellitus with hyperglycemia; E66.811 Obesity, class 1; I16.0 Hypertensive urgency; G47.33 Obstructive sleep apnea (adult) (pediatric); D69.6 Thrombocytopenia, unspecified; I44.7 Left bundle-branch block, unspecified; F39 Unspecified mood [affective] disorder; D63.1 Anemia in chronic kidney disease; K59.00 Constipation, unspecified; R51.9 Headache, unspecified; E11.22 Type 2 diabetes mellitus with diabetic chronic kidney disease; Z79.899 Other long term (current) drug therapy; Z79.2 Long term (current) use of antibiotics; Z79.01 Long term (current) use of anticoagulants; Z85.46 Personal history of malignant neoplasm of prostate; Z86.711 Personal history of pulmonary embolism; Z86.718 Personal history of other venous thrombosis and embolism; Z68.31 Body mass index [BMI] 31.0-31.9, adult; Z79.51 Long term (current) use of inhaled steroids; Z86.16 Personal history of COVID-19; Z89.201 Acquired absence of right upper limb, unspecified level
CPT/HCPCS: 0240U; 36415; 51702; 71045; 80048; 80053; 82607; 82746; 82977; 83605; 83735; 83880; 84439; 84443; 84484; 85025; 85610; 85730; 86140; 86738; 87040; 93005; 94640; 94667; 97165; 99223; 99232; 99233; 99239; A9270-GY; J0456; J0696; J1120; J1938; J2919; J3480; J3490; J7050; J7070; J7120; J7512; P9047

== ENCOUNTER 2025-02-12 12:47 | Emergency (ER) | payer OTHER ==
[2025-02-12 13:21] VITALS: BP 121/73; PULSE 60
== END 2025-02-12 14:33 | disposition home or self-care (01) ==
LOC: DL.ED 12:47
DX: I95.1 Orthostatic hypotension (principal); I48.91 Unspecified atrial fibrillation; I11.0 Hypertensive heart disease with heart failure; I50.9 Heart failure, unspecified; E11.9 Type 2 diabetes mellitus without complications; E03.9 Hypothyroidism, unspecified; Z79.899 Other long term (current) drug therapy; Z79.01 Long term (current) use of anticoagulants; Z79.890 Hormone replacement therapy; Z86.16 Personal history of COVID-19; Z91.81 History of falling
CPT/HCPCS: 70450; 99283; 99285